=== PATIENT | male | born 1955 | race Caucasian/White ===

== ENCOUNTER 2016-06-16 18:54 | Emergency (ER) | payer BC ==
[~2016-06-16 18:54] MED LIST: Iopamidol 370 76% 100 ML VIAL ONE
[2016-06-16] MEDS ORDERED: Ondansetron HCl/PF 4 MG/2 ML Vial ONE (19:21)
[2016-06-16 19:38] LABS: Blood, Urine Large (Negative); Clarity Slightly Cloudy (Clear); Glucose, Urine (Dipstick) 100 mg/dL (Negative); Leukocyte Negative (Negative); Nitrite Negative (Negative); Protein, Urine (Dipstick) > or equal to 300 mg/dL (Neg-Trace); Urobilinogen 0.2 mg/dL (0.2-1.0)
[2016-06-16 19:41] LABS: #Basophils 0.1 thou/uL (0.0-0.2); #Eosinphils 0.1 thou/uL (0.0-0.7); #Lymphocytes 1.5 thou/uL (1.20-3.40); #Monocytes 0.5 thou/uL (0.11-0.59); #Neutrophils 6.9 thou/uL (1.40-6.50); %Basophils 0.7 % (0.0-1.0); %Eosinophils 1.2 % (0.0-10.0); %Lymphocytes 16.4 % (21.0-51.0); %Monocytes 5.3 % (0.0-10.0); %Neutrophils 76.5 % (42.0-75.0); Hemoglobin 15.6 g/dL (14.0-18.0); Mean Corpuscular HGB CONC 33.5 g/dL (32.0-36.0); Mean Corpuscular Hemoglobin 29.1 pg (27.0-31.0); Mean Corpuscular Volume 86.9 fl (80.0-94.0); Mean Platelet Volume 8.6 fL (7.4-10.4); Platelet Count 172 thou/uL (130-400); RBC Distribution Width 12.4 % (11.5-14.5); Red Blood Cell (RBC) Count 5.36 mill/uL (4.70-6.10); White Blood Cell (WBC) Count 9.1 thou/uL (4.8-10.8)
[2016-06-16 19:43] LABS: Specific Gravity, Urine 1.032 (1.002-1.036)
[2016-06-16 19:45] LABS: Bilirubin Negative (Negative)
[2016-06-16 19:53] LABS: ALT (SGPT) 54 U/L (8-55); AST (SGOT) 38 U/L (5-34); Albumin 4.5 g/dL (3.4-4.8); Alkaline Phosphatase 56 U/L (40-150); Anion Gap 15 mmol/L (10-20); BUN (Urea Nitrogen) 14 mg/dL (8.4-25.7); Bilirubin, Total 0.4 mg/dL (0.2-1.2); Calc. Creatinine Clearance 0 mL/min (70-130); Calcium 9.7 mg/dL (7.8-10.44); Carbon Dioxide 24 mmol/L (23-31); Chloride 105 mmol/L (98-107); Estimated GFR-MDRD 70; Globulin 2.9 g/dL (2.4-3.5); Glucose 172 mg/dL (80-115); Lipase 26 U/L (8-78); Protein, Total 7.4 g/dL (5.8-8.1); Sodium 140 mmol/L (136-145)
[2016-06-16 19:59] LABS: RBC/HPF 21-50 HPF (0-3); Renal Epithelial None Seen HPF (0-3); Squamous Epithelial None Seen HPF (0-3); Transitional Epithelial NONE SEEN HPF (0-3); WBC/HPF 0-3 HPF (0-3)
[2016-06-16 20:00] LABS: Bacteria/HPF Rare-Few HPF (None Seen); Crystals/HPF 1+ CA OXALATE HPF (Negative); Hyaline Casts/LPF NONE SEEN LPF (0-3 Hyaline); Other Casts/LPF None Seen LPF (0-3 Hyaline); Oval Fat Bodies/HPF None Seen HPF (None Seen); Sperm/HPF None Seen HPF (None Seen); Trichomonas/HPF None Seen HPF (None Seen); Yeast-All Forms None Seen HPF (None Seen)
[2016-06-16] MEDS ORDERED: Ketorolac Tromethamine 30 MG/ML VIAL ONE (20:26)
[2016-06-16] MEDS ORDERED: HYDROcodone/Acetaminophen 5/325 mg Tablet ONE (20:29)
--- NOTE | 2016-06-16 20:37 | CT ---
CT ABDOMEN AND PELVIS WITH CONTRAST 06/16/2016 HISTORY/TECHNIQUE: A spiral CT of the abdomen and pelvis was performed for evaluation of left lower quadrant pain. Axi al slices were acquired, and then coronal reconstructions were done. FINDINGS: The major finding on this study is a 6 mm distal left ureteral calculus, at the UVJ, causing mild le ft hydronephrosis. I do not appreciate any other renal calculi. The lung bases are clear. The liver shows diffuse fatty infiltration without any focal lesions or e nlargement. The gallbladder, pancreas, spleen, adrenal glands, and abdominal aorta all show no acut e findings. There is virtually no arteriosclerotic change in the aorta. The bowel is nondistended. There are some fluid-filled loops of small bowel, but none of them are g reatly enlarged. This is probably more of an ileus, in response to the ureteral calculus. The appe ndix appears normal. There is some extensive diverticulosis in the sigmoid region, but no clear fin dings of diverticulitis at the moment. No free air or free fluid is seen. CT of the pelvis shows no pelvic masses, fluid collections, or acute inflammatory changes. The pros huertas is generous in size. There is a suggestion of central canal stenosis at L4-L5, in particular. IMPRESSION: 1. A 6 mm distal left ureteral calculus at the uncovertebral joint, causing mild left hydronephrosi s. 2. Diffuse fatty infiltration of the liver. 3. Diverticulosis without findings of diverticulitis. 4. Spinal stenosis at L4-L5. POS: HOME
== END 2016-06-16 20:38 | disposition home or self-care (01) ==
LOC: BURERS 18:54
DX: N13.2 Hydronephrosis with renal and ureteral calculous obstruction (principal); E11.9 Type 2 diabetes mellitus without complications; Z79.899 Other long term (current) drug therapy; Z79.82 Long term (current) use of aspirin; Z79.84 Long term (current) use of oral hypoglycemic drugs
CPT/HCPCS: 74177; 80053; 81003; 81015; 83605; 83690; 85025; 96374; 96375; J1885; J2270; J2405